=== PATIENT | male | born 1985 | race Caucasian/White ===

== ENCOUNTER 2017-07-05 21:53 | Emergency (ER) | payer BC ==
[~2017-07-05] VITALS: Ht 172.7 cm; Wt 105.9 kg
[2017-07-05] MEDS ORDERED: MOTRIN800 MG PO (23:13)
[2017-07-05 23:27] VITALS: BP 141/96
== END 2017-07-05 23:27 | disposition home or self-care (01) ==
LOC: EME 21:53
PROC: 0HQ0XZZ Repair Scalp Skin, External Approach (ICD-10-PCS; principal; 2017-07-05)
DX: S06.0X0A Concussion without loss of consciousness, initial encounter (principal); S01.01XA Laceration without foreign body of scalp, initial encounter; W22.09XA Striking against other stationary object, initial encounter; Y93.89 Activity, other specified
CPT/HCPCS: 99281; 99283